=== PATIENT | male | born 1940 | race Caucasian/White ===

== ENCOUNTER → 2019-08-04 | Outpatient (CLI) | payer OTHER ==
[~2019-08-04] VITALS: Ht 180.3 cm; Wt 90.7 kg
[~2019-08-04] MED LIST: ARICEPT10 M1 PO; CURCUMIN1 GM PO; FISH OIL 1,2001 EAC4 PO; FLOMAX0.4 MG PO; LEXAPRO20 MG PO; LIPITOR 20 MG T20 M1 PO; NUPLAZID34 MG PO; PLAVIX 75 MG TA75 M1 PO; VITAMIN D35000 UNIT PO; [UNRECOGNIZED DRUG - OTHER] PO
--- NOTE | 2019-08-05 17:06 | PATH ---
[facility] [address] [place] [address] PATHOLOGY RPT PROCEDURE Name: ESTIVEN LI Room #: [facility].#: [id number] Admission: 08/04/19 Date of : 44 Discharge: Report #: [id number] Path Case #: [id number] [facility] Accession Number: [id number] . 01 Material submitted: . cecum - BX POLYP AT CECUM X2 . 01 Clinical history: . History of polyps, colon polyps, diverticulosis, internal hemorrhoids . 02 Diagnosis: Polyp x2, cecum, endoscopic biopsy: - Two fragments showing changes compatible with tubular adenoma. - Negative for high grade dysplasia. . (IUV:mml; 08/05/2019) QLM/08/05/2019 . 02 Electronically signed: . Roxana Jones MD, Pathologist NPI- [id number] . 01 Gross description: . The specimen is received in formalin, labeled "Estiven Li, BX polyp at cecum X2 ", are three irregular fragments baires rubbery polyp measuring 0.2 cm in greatest dimension each. The specimen is entirely submitted in A1. ([facility]; 08/04/2019) [facility]S . 02 Pathologist provided ICD-10: D12.0 . 02 CPT . 896809 Specimen Comment: A courtesy copy of this report has been sent to Specimen Comment: [phone]. Specimen Comment: Report sent to Performed at: [address], [place] [id number] MD Chris Cano MD Phone: [phone] Performed at: [address] [id number] MD Roxana Jones MD Phone: [phone]
== END | disposition home or self-care (01) ==
LOC: GI 08:12
DX: Z12.11 Encounter for screening for malignant neoplasm of colon (principal); Z86.010 Personal history of colon polyps; D12.0 Benign neoplasm of cecum; K57.30 Diverticulosis of large intestine without perforation or abscess without bleeding; K64.8 Other hemorrhoids; K21.9 Gastro-esophageal reflux disease without esophagitis; E78.00 Pure hypercholesterolemia, unspecified; F32.9 Major depressive disorder, single episode, unspecified; Z85.820 Personal history of malignant melanoma of skin; Z79.899 Other long term (current) drug therapy; Z98.890 Other specified postprocedural states
CPT/HCPCS: 62110; 62900